=== PATIENT | female | born 1945 | race Caucasian/White ===

== ENCOUNTER → 2016-09-27 | Outpatient (CLI) | payer MEDICARE ==
[~2016-09-27] MED LIST: AMLO-145 PO; PANT40TA4 PO
--- NOTE | 2016-09-27 13:15 | RADRPT ---
PROCEDURE: Gastric emptying scan CLINICAL INDICATION: 70 -year-old patient with abdominal pain, nausea and vomiting. TECHNIQUE: Following the oral administration of 1.1 mCi of Tc-99m sulfur colloid, labeled to a daniella id meal, gastric emptying study was obtained. COMPARISON: No prior studies. FINDINGS: The stomach is well visualized. The small intestines are identified. There is evidence of normal gastric emptying rate from the start of the study with calculated T1/2 t ramin of 61 minutes (normal range is 30 - 90 minutes). There is no evidence of increased activity in the chest to suggest the presence of gastroesophageal reflux. IMPRESSION: Normal gastric emptying rate . RPTAT: HH .Soraya Trujillo MD, Date Time Electronically viewed and signed by .oSraya Trujillo MD, MD on 09/27/2016 13:14 .L/
== END | disposition home or self-care (01) ==
LOC: NUC 09:38
PROVIDERS: ATTEND Internal Medicine Gastroenterology
DX: K58.9 Irritable bowel syndrome, unspecified (principal); R10.11 Right upper quadrant pain; R14.2 Eructation; K21.9 Gastro-esophageal reflux disease without esophagitis; K76.0 Fatty (change of) liver, not elsewhere classified; R11.2 Nausea with vomiting, unspecified; Z86.010 Personal history of colon polyps
CPT/HCPCS: 78264; A9541